=== PATIENT | female | born 1980 | race Two or more races ===

== ENCOUNTER 2018-10-07 09:05 | Day surgery (SDC) | payer OTHER ==
[2018-10-07] MEDS ORDERED: NEXIUM 24HR20 MG PO (12:53)
== END 2018-10-07 16:30 | disposition home or self-care (01) ==
LOC: AMB-ENDOS 09:05
DX: K29.50 Unspecified chronic gastritis without bleeding (principal)

== ENCOUNTER 2020-02-29 05:50 | Day surgery (SDC) | payer OTHER ==
[~2020-02-29 05:50] MED LIST: NEXIUM 24HR20 MG PO
[2020-02-29] MEDS ORDERED: KETO10TA2 PO (08:18)
[2020-02-29] MEDS ORDERED: PERCOCET 5-3251 EACH PO (08:18)
== END 2020-02-29 13:45 | disposition home or self-care (01) ==
LOC: CIR.AMB 05:50
PROVIDERS: ATTEND Surgery
DX: K60.3 Anal fistula (principal)